=== PATIENT | male | born 1945 | race Caucasian/White ===

== ENCOUNTER → 2021-04-21 09:40 | Outpatient (CLI) | payer MEDICARE, BC, SELFPAY ==
[2021-04-21 11:35] LABS: Basophils # 0.1 K/mm3 (0-0.2); Basophils % 1.2 % (0.1-2.0); Eosinophils # 0.3 K/mm3 (0.0-0.4); Eosinophils % 5.2 % (0.1-12.0); Hematocrit 52.6 % (42.0-52.0); Hemoglobin 17.5 g/dL (14.1-18.0); Lymphocytes # 1.5 K/mm3 (0.7-4.5); Lymphocytes % 25.7 % (10-50); Mean Corpuscular HGB Conc 33.2 g/dL (31.8-35.4); Mean Corpuscular Hemoglobin 36.1 pg (27.0-31.2); Mean Corpuscular Volume 108.6 fl (80-94); Mean Platelet Volume 7.6 fl (7.4-10.4); Monocytes # 0.4 K/mm3 (0.1-1.0); Monocytes % 6.9 % (1.7-9.3); Neutrophils # 3.6 K/mm3 (1.8-7.8); Platelet Count 239 K/mm3 (142-424); Red Blood Count 4.84 M/mm3 (4.60-6.20); Red Cell Distribution Width 12.9 % (11.5-17.5); White Blood Count 5.9 K/mm3 (4.8-10.8)
== END ==
PROVIDERS: PCP Nurse Practitioner; Visit Provider Nurse Practitioner
DX: Z20.822 Contact with and (suspected) exposure to COVID-19 (principal)
CPT/HCPCS: 36415; 85025; C9803; U0003; U0005

== ENCOUNTER → 2022-03-16 09:35 | Outpatient (CLI) | payer MEDICARE, BC, SELFPAY | PROVIDERS: PCP Nurse Practitioner; Visit Provider Nurse Practitioner | DX: J01.00 Acute maxillary sinusitis, unspecified (principal) ==

== ENCOUNTER → 2022-03-16 11:43 | Outpatient (CLI) | payer MEDICARE, BC, SELFPAY ==
--- NOTE | 2022-03-16 11:53 | XR_ITS ---
FINAL REPORT CLINICAL HISTORY: pneumonia, bronchitis, cough FINDINGS: Two views of the chest were obtained. The heart size and pulmonary vascularity are within normal limits. The mediastinum is normal. No acute pulmonary abnormality is identified. There is no pneumothorax. The bony thorax is intact. IMPRESSION: No active cardiopulmonary disease. Reviewed, Interpreted and Dictated by Stan Badillo III, MD Transcribed by Andrea Francis Authenticated and [facility]
[2022-03-16 17:51] LABS: Adenovirus,PCR Not Detected (NotDetected); Bordetella Pertussis Not Detected (NotDetected); Chlamydophila Pneumoniae, PCR Not Detected (NotDetected); Coronavirus 19, PCR Not Detected (NotDetected); Coronavirus 229E Not Detected (NotDetected); Coronavirus NL63 Not Detected (NotDetected); Coronavirus OC43 Not Detected (NotDetected); Coronovirus HKU1,PCR Not Detected (NotDetected); Human Metapneumovirus Not Detected (NotDetected); Influenza A, PCR Not Detected (NotDetected); Influenza AH1, 2009 Not Detected (NotDetected); Influenza AH1, PCR Not Detected (NotDetected); Influenza AH3,PCR Not Detected (NotDetected); Influenza B, PCR Not Detected (NotDetected); Mycoplasma Pneumoniae, PCR Not Detected (NotDetected); Parainfluenza 1, PCR Not Detected (NotDetected); Parainfluenza 2, PCR Not Detected (NotDetected); Parainfluenza 3, PCR Not Detected (NotDetected); Parainfluenza 4, PCR Not Detected (NotDetected); Respiratory Syncytial Virus Not Detected (NotDetected); Rhinovirus/Enterovirus Not Detected (NotDetected)
[2022-03-16 18:00] LABS: Basophils # 0.1 K/mm3 (0-0.2); Basophils % 1.8 % (0.1-2.0); Eosinophils # 0.5 K/mm3 (0.0-0.4); Eosinophils % 9.4 % (0.1-12.0); Hemoglobin 16.5 g/dL (14.1-18.0); Lymphocytes # 1.2 K/mm3 (0.7-4.5); Lymphocytes % 23.3 % (10-50); Mean Corpuscular HGB Conc 32.5 g/dL (31.8-35.4); Mean Corpuscular Hemoglobin 35.4 pg (27.0-31.2); Mean Platelet Volume 9.1 fl (7.4-10.4); Monocytes # 0.5 K/mm3 (0.1-1.0); Monocytes % 8.9 % (1.7-9.3); Neutrophils # 2.9 K/mm3 (1.8-7.8); Neutrophils % 56.5 % (37.0-80.0); Platelet Count 306 K/mm3 (142-424); Red Blood Count 4.68 M/mm3 (4.60-6.20); Red Cell Distribution Width 13.5 % (11.5-17.5); White Blood Count 5.1 K/mm3 (4.8-10.8)
== END ==
PROVIDERS: PCP Family Medicine; Visit Provider Nurse Practitioner
DX: J01.00 Acute maxillary sinusitis, unspecified (principal); J40 Bronchitis, not specified as acute or chronic; R05.9 Cough, unspecified; Z20.822 Contact with and (suspected) exposure to COVID-19
CPT/HCPCS: 71046; 85025; 87581; 87632; 87798; C9803; U0003; U0005

== ENCOUNTER 2024-02-07 11:18 | Emergency (ER) | payer MEDICARE, BC, SELFPAY ==
[2024-02-07 11:20] VITALS: BP 132/87; PULSE 71; RESP 18; TEMP 36.5; O2SAT 98; BMI 21.2
--- NOTE | 2024-02-07 11:28 | ECG_ITS ---
APPROVED REPORT Exam: Resting ECG HR:81 bpm ECG Measurements Heart Rate 81 AXES NC 164 P 76 QRSd 77 QRS 85 QT 345 T 79 QTc 383 Conclusion Sinus rhythm Intermittent PVCs Electronically signed by : MARIA D PARKER, 02/08/2024 07:03:37
--- NOTE | 2024-02-07 11:42 | PC.NURSE ---
Dr. Manzano at [facility] for pt eval
[2024-02-07 12:01] VITALS: BP 105/79; PULSE 78; RESP 14; O2SAT 97
[2024-02-07 12:02] LABS: Basophils # 0.1 K/mm3 (0-0.2); Basophils % 1.5 % (0.1-2.0); Eosinophils # 0.2 K/mm3 (0.0-0.4); Hematocrit 48.1 % (42.0-52.0); Hemoglobin 16.1 g/dL (14.1-18.0); Lymphocytes # 1.3 K/mm3 (0.7-4.5); Lymphocytes % 23.2 % (10-50); Mean Corpuscular HGB Conc 33.6 g/dL (31.8-35.4); Mean Corpuscular Hemoglobin 36.1 pg (27.0-31.2); Mean Corpuscular Volume 107.5 fl (80-94); Mean Platelet Volume 7.8 fl (7.4-10.4); Monocytes # 0.5 K/mm3 (0.1-1.0); Monocytes % 8.8 % (1.7-9.3); Neutrophils # 3.6 K/mm3 (1.8-7.8); Neutrophils % 63.4 % (37.0-80.0); Platelet Count 319 K/mm3 (142-424); Red Blood Count 4.47 M/mm3 (4.60-6.20); Red Cell Distribution Width 13.6 % (11.5-17.5); White Blood Count 5.7 K/mm3 (4.8-10.8)
[2024-02-07 12:04] LABS: Albumin Level 4.3 g/dl (3.5-5.0); Chloride 104 mmol/L (98-107)
[2024-02-07 12:05] LABS: Potassium 4.4 mmoL/L (3.5-5.1); Sodium 139 mmol/L (136-145)
[2024-02-07 12:08] LABS: Alanine Aminotransferase 20 U/L (12-78); Albumin/Globulin Ratio 1.3 (1.1-1.8); Alkaline Phosphatase 80 U/L (38-126); Anion Gap 8.4 mEq/L (5-15); Aspartate Amino Transferase 40 U/L (17-59); Bilirubin,Total 0.8 mg/dl (0.2-1.3); Calcium 9.3 mg/dl (8.4-10.2); Carbon Dioxide 31 mmol/L (22.0-30.0); Globulin 3.4 g/dL (1.3-3.2); Glucose 84 mg/dl (74-100); Total Protein,Serum 7.7 g/dl (6.3-8.2)
[2024-02-07 12:12] LABS: Blood Urea Nitrogen 16 mg/dl (9-20)
[2024-02-07 12:13] LABS: C-Reactive Protein 1.7 mg/L (0-4); Creatinine Clearance Estimated 46 mL/min (50-200); Estimated Glomerular Filt Rate 59 ml/min (>60); GFR (African American) 71 ML/MIN (>60)
[2024-02-07 12:22] LABS: Troponin I < 0.01 ng/ml (0.00-0.034)
--- NOTE | 2024-02-07 12:28 | CT_ITS ---
FINAL REPORT CLINICAL HISTORY: Left-sided blurry vision, goes to chiropractor FINDINGS: Axial images of the head were obtained without contrast. Coronal reformatted images were also obtained. This study was performed with techniques to keep radiation doses as low as reasonably achievable (ALARA). Individualized dose reduction techniques using automated exposure control or adjustment of mA and/or kV according to the patient's size were employed. There is generalized age-appropriate atrophy. Periventricular low-attenuation areas are seen consistent with mild chronic ischemic changes. There is no evidence of intracranial hemorrhage or mass. There is no evidence of acute infarct. There is no evidence of shift of the midline structures. No skull abnormality is seen on the bone window images. IMPRESSION: Atrophy and mild periventricular chronic ischemic changes. No acute intracranial abnormality identified. Reviewed, Interpreted and Dictated by Stan Badillo III, MD Transcribed by Paulina Ibarra Authenticated and [facility]
--- NOTE | 2024-02-07 12:28 | CT_ITS ---
FINAL REPORT TECHNIQUE: Thin section axial CT with IV contrast supplemented with multiplanar reconstruction under CT angiogram protocol. This study was performed with techniques to keep radiation doses as low as reasonably achievable (ALARA). Individualized dose reduction techniques using automated exposure control or adjustment of mA and/or kV according to the patient''s size were employed. NASCET criteria was utilized during interpretation. CLINICAL HISTORY: Left-sided vision changes, floaters, colors FINDINGS: Aortic arch: Arch shows no significant narrowing. Great vessel origins are widely patent. Right carotid: No significant stenosis is seen of the cervical common or internal carotid artery. Left carotid: No significant stenosis is seen of the cervical common or internal carotid artery. Vertebral: The vertebral arteries are codominant. There is mild deformity of the left vertebral artery at the C4-5 level. This is favored to be due to mass effect from left facet arthropathy. No significant stenosis is present. IMPRESSION: No evidence of stenosis. Reviewed, Interpreted and Dictated by Stan Badillo III, MD Transcribed by Paulina Ibarra Authenticated and [facility]
--- NOTE | 2024-02-07 12:28 | CT_ITS ---
FINAL REPORT TECHNIQUE: Thin section axial CT with IV contrast supplemented with multiplanar reconstruction under CT angiogram protocol. 3-D reconstructions were performed. This study was performed with techniques to keep radiation doses as low as reasonably achievable (ALARA). Individualized dose reduction techniques using automated exposure control or adjustment of mA and/or kV according to the patient''s size were employed. CLINICAL HISTORY: Left-sided vision changes, floaters, colors FINDINGS: There is vascular prominence at the right middle cerebral artery trifurcation without well-defined aneurysm. Major intracranial vessels are patent without significant stenosis. IMPRESSION: No evidence of aneurysm or major branch occlusion. Reviewed, Interpreted and Dictated by Stan Badillo III, MD Transcribed by Paulina Ibarra Authenticated and . [facility]
--- NOTE | 2024-02-07 12:28 | HMH.EDGENADL ---
Discharge Plan Disposition Patient Disposition: Home, Self-Care Prescriptions Prescriptions: No Action fluticasone propionate [Flonase Allergy Relief] 50 mcg/actuation spray,suspension 1 spray intranasal BID Rx Instructions: administer into each nostril Referrals Follow up/Referrals: Celeste Zuñiga APRN [Primary Care Provider] - See instructions Activity Restrictions/Add. Instructions Additional Instructions/Restrictions: Follow-up with Dr. Chowdhury tomorrow in the [facility] ophthalmology clinic at 1 PM. Call your family doctor to establish care for this visit to the emergency department and schedule follow-up within 48 hours to ensure improvement. If you have any worsening of your condition or any other concerning signs or symptoms, return to the emergency department or your primary care doctor for further evaluation. Clinical Impressions Clinical Impression: Vision loss of left eye Print Language Print Language: [place] Discharge ED Provider: Jb Manzano General Adult HPI <Jb Manzano MD - Last Filed: 02/07/24 16:25> General Chief complaint: Eye Problems Stated complaint: kliedascope vision L eye, pain in C1 nerve, headac Time Seen by Provider: 02/07/24 11:34 Mode of Arrival: Ambulatory Source of Information: Patient Limitations: No Limitations Description of Symptoms (Recalled from ER Triage Doc. by RN): c/o neck pain with c1 vertebrae problems that he has been seeing a chriopractor for and started having blurry vision and no color. 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 History of Present Illness HPI narrative: Please note that above description of symptoms, in this electronic medical record under categorization of recalled from ER triage doctor by RN are reflective of an initial nursing assessment, however, is not reflective of my full history and physical exam that was personally taken and clarified. Consequentially, this preceding description of symptoms, which may include the patient's categorized chief complaint in the EMR, do not reflect my personal clinical impression, and the ultimate description of history of present illness and patient stated complaints should be deferred to this section of the note. Unless stated otherwise or congruent with this section of the note, additional signs, symptoms, or incongruence should be interpreted as inaccurate with my clinical impression. Related Data Home Medications ?Medication ?Instructions ?Recorded ?Confirmed fluticasone propionate 50 1 spray intranasal BID 03/16/22 02/07/24 mcg/actuation nasal spray,suspension (Flonase Allergy Relief) Allergies Allergy/AdvReac Type Severity Reaction Status Date / Time No Known Allergies Allergy Verified 02/07/24 09:14 [facility] <Jb Manzano MD - Last Filed: 02/07/24 16:25> [facility] Disclaimer: The information contained in this section may have been updated after the patient was seen, as this information can be updated by other users. Medical History Activity intolerance Headache Blurred vision, left eye Transient neurological symptoms Personal history of smoking Surgical History History of hernia repair Social History Smoking Status: Current every day smoker alcohol intake: current current occupational status: retired Travel in the last 8 weeks: None <Jb Manzano MD - Last Filed: 02/07/24 16:25> ROS Obtained: Yes All systems reviewed & no additional complaints except as documented Physical Exam <Jb Manzano MD - Last Filed: 02/07/24 16:25> General General appearance: alert Head Head exam: atraumatic and normocephalic Eye Eye exam: Present normal appearance, PERRL and EOMI Neck Neck exam: Present normal inspection, full ROM and trachea midline Respiratory Respiratory exam: Absent respiratory distress, wheezes, stridor, accessory muscle use or prolonged expiratory phase Cardiovascular Cardiovascular exam: Present other (Pulses equal symmetric in upper and lower extremities) Abdominal Exam Abdominal exam: Present soft; Absent distention, tenderness or pulsatile mass Extremities Exam Extremities exam: Absent edema Neurological Exam Neurological exam: Present alert, oriented X3 and CN II-XII intact; Absent motor sensory deficit Skin Skin exam: Present warm and dry; Absent diaphoresis or erythema Medical Decision Making <Jb Manzano MD - Last Filed: 02/07/24 16:25> Medical Records Medical records reviewed: Yes I reviewed the patient's medical records. Pio Inquiry Pt receiving controlled substance: No Pio was queried for this patient: No Vital Signs: 02/07/24 11:20 02/07/24 12:01 02/07/24 15:30 Temperature 97.7 F Temperature Source Oral Pulse Rate 78 78 Pulse Rate [Left Radial] 71 Respiratory Rate 18 14 18 Blood Pressure 105/79 L 135/87 Blood Pressure [Right Arm] 132/87 Blood Pressure Mean [Right Arm] 102 Blood Pressure Source [Right Arm] Automatic Cuff Blood Pressure Position [Right Arm] Sitting 02 Sat by Pulse Oximetry 98 97 97 Oxygen Delivery Method Room Air Room Air 02/07/24 16:00 02/07/24 17:04 Temperature 97.7 F Temperature Source Oral Pulse Rate 72 72 Pulse Rate [Left Radial] Respiratory Rate 23 16 Blood Pressure 114/84 98/55 L Blood Pressure [Right Arm] Blood Pressure Mean [Right Arm] Blood Pressure Source [Right Arm] Blood Pressure Position [Right Arm] 02 Sat by Pulse Oximetry 99 Oxygen Delivery Method Room Air Lab Data Lab Results 02/07/24 11:28: WBC 5.7, RBC 4.47 L, Hgb 16.1, Hct 48.1, MCV 107.5 H, MCH 36.1 H, MCHC 33.6, RDW 13.6, Plt Count 319, MPV 7.8, Neut % (Auto) 63.4, Lymph % (Auto) 23.2, [place] % (Auto) 8.8, Eos % (Auto) 3.0, Baso % (Auto) 1.5, Neut # (Auto) 3.6, Lymph # (Auto) 1.3, [place] # (Auto) 0.5, Eos # (Auto) 0.2, Baso # (Auto) 0.1, ESR 18, Sodium 139, Potassium 4.4, Chloride 104, Carbon Dioxide 31 H, Anion Gap 8.4, BUN 16, Creatinine 1.20, Estimated Creat Clear 46, Estimated GFR 59, Est GFR ( Amer) 71, Glucose 84, Calcium 9.3, Total Bilirubin 0.8, AST 40, ALT 20, Alkaline Phosphatase 80, Troponin I < 0.01, C-Reactive Protein 1.7, Total Protein 7.7, Albumin 4.3, Globulin 3.4 H, Albumin/Globulin Ratio 1.3 02/07/24 12:30: Urine Color Yellow, Urine Appearance Clear, Urine pH 7.0, Ur Specific [place] 1.015, Urine Protein Negative, Urine Glucose (UA) Negative, Urine Ketones Negative, Urine Blood Negative, Urine Nitrate Negative, Urine Bilirubin Negative, Urine Urobilinogen 0.2, Ur Leukocyte Esterase Negative, Urine RBC None, Urine WBC None, Ur Squamous Epith Cells None, Urine Bacteria None 02/07/24 14:55: Troponin I < 0.01 02/07/24 11:28 02/07/24 11:28 Orders (Tests/Meds): ED MEDICATIONS Discontinued Medications Generic Name Dose Route Start Last Admin Trade Name Freq PRN Reason Stop Dose Admin Iopamidol 80 ml 02/07/24 12:55 02/07/24 12:56 Iopamidol-370 (76%);100ml Bottle IV 02/07/24 12:56 80 ml ONCE ONE Administration Sodium Chloride 50 ml 02/07/24 12:55 02/07/24 12:56 0.9 % Sodium Chloride 50 Ml Vial IV 02/07/24 12:56 50 ml ONCE ONE Administration Sodium Chloride 10 ml 02/07/24 12:55 02/07/24 12:55 Sodium Chloride 0.9% 10ml Syr (Rad Only) IV 03/08/24 12:54 10 ml NEEDED PRN Administration Maintain IV Site ORDERS Category Date Time Status CT angio head Stat Cat Scan 02/07/24 12:[address] angio neck Stat Cat Scan 02/07/24 12:[address] head/brain wo con Stat Cat Scan 02/07/24 12:28 Completed POCUS Point of Care (ER Only) Stat Exams 02/07/24 11:54 Completed CBC w/Auto Diff [Complete Blood Count Auto Diff] Stat Lab 02/07/24 11:28 Completed CMP [Comprehensive Metabolic Panel] Stat Lab 02/07/24 11:28 Completed CRP [C-Reactive Protein] Stat Lab 02/07/24 11:28 Completed ESR [Erythrocyte Sedimentation Rate] Stat Lab 02/07/24 11:28 Completed Trop I [Troponin I] Stat Lab 02/07/24 11:28 Completed Troponin I Q3H Lab 02/07/24 14:55 Completed UA [Urinalysis and Microscopic] Stat Lab 02/07/24 12:30 Completed CA carotid duplex BI Routine Y 02/07/24 13:47 Completed CA echo doppler complete Routine Y 02/07/24 13:47 Completed Medical Decision Narrative: 78-year-old male history of neck pain following with chiropractor for C1 radiculopathy presenting with left eye vision changes. Patient states that left eye vision changes have been going on for a few days at this point. Noticed on Sunday that he started having flashes of colors as well as blurry vision in his left eye. No vision changes in his right eye. Last time his neck was manipulated was last week 7 days prior to this visit. States that prior to that he was having scalp tenderness on the left side, pain in the left side of his jaw with chewing and eating as well as talking, both of these things got better with rest. Saw pediatric geneticist yesterday, 02/05. Had full funduscopic exam, per report, which was totally normal. No left-sided facial symptoms otherwise, no left-sided extremity weakness. No bowel or bladder dysfunction, no trauma. No fevers, chills, night sweats, unintended weight loss, trauma to the area, neck stiffness or pain. Also denying chest pain, nausea, vomiting, shortness of breath, PND, orthopnea, or any other associated symptoms at all. Isolated to his eye. Has never had this in the past. Patient went to his family doctor who had list of tests, etc. to be done over the next couple of weeks and came to the emergency department to see if they can be performed. History was obtained via conversation with patient. On arrival, patient hemodynamically stable, alert, [oriented x4, ][appropriate, ]GCS [15], moving all extremities spontaneously, pupils equal and reactive to light. Full physical exam performed and significant for very well-appearing male who is in no acute distress. Pupils are 3 mm and reactive bilaterally. Consensual reflex intact. EOMs are intact. Patient does not have nystagmus. Potential cataract in the left eye. Cranial nerve, cerebellar, motor and sensory exam is all normal as well. No scalp tenderness, no palpable temporal artery on the left. No overlying skin changes. Normal intraocular pressures, normal EOMs and nonpainful. Cardiac exam without acute findings, no lower extremity edema. Pulses are equal and symmetric. Differential includes retinal detachment, vitreous hemorrhage, GCA, ischemic arteritis, nonischemic arteritis, optic neuritis, dissection, CVA, among others. Patient placed on continuous cardiac monitoring and continuous pulse ox with initial blood pressure 132/87, heart rate 71, saturation 98% on room air. [Independent interpretation of EKG shows] sinus rhythm with sinus arrhythmia, intermittent PVCs. No ST or T wave changes concerning for acute schema.. Patient was given p.o. fluids for symptomatic management[ and correction of underlying abnormalities]. Workup independently interpreted and significant for nonactionable CBC or chemistry, ESR and CRP negative. Troponin negative. On independent interpretation of imaging, no acute vascular abnormality of the head or neck, no CVA, no intracranial hemorrhage. See radiology read for full review of final results. I contacted ophthalmology out of concern for unknown etiology of painless vision loss at [facility]. They recommended outpatient follow-up tomorrow, 02/07 at 1:30 PM in clinic. [id number] bedside ocular ultrasound performed and no retinal abnormality, but there is optic nerve edema with borderline enlarged optic nerve just over 6 mm. Cardiac and carotid ultrasound pending at time of handoff to oncoming physician. [employer] disclaimer Much of this encounter note is an electronic product steward spoken language to printed text. Electronic product steward of the spoken language may permit errors. Although I have reviewed the note, some errors may still exist. <Milagros Schneider, DO - Last Filed: 02/07/24 23:15> Vital Signs: 02/07/24 11:20 02/07/24 12:01 02/07/24 15:30 Temperature 97.7 F Temperature Source Oral Pulse Rate 78 78 Pulse Rate [Left Radial] 71 Respiratory Rate 18 14 18 Blood Pressure 105/79 L 135/87 Blood Pressure [Right Arm] 132/87 Blood Pressure Mean [Right Arm] 102 Blood Pressure Source [Right Arm] Automatic Cuff Blood Pressure Position [Right Arm] Sitting 02 Sat by Pulse Oximetry 98 97 97 Oxygen Delivery Method Room Air Room Air 02/07/24 16:00 02/07/24 17:04 Temperature 97.7 F Temperature Source Oral Pulse Rate 72 72 Pulse Rate [Left Radial] Respiratory Rate 23 16 Blood Pressure 114/84 98/55 L Blood Pressure [Right Arm] Blood Pressure Mean [Right Arm] Blood Pressure Source [Right Arm] Blood Pressure Position [Right Arm] 02 Sat by Pulse Oximetry 99 Oxygen Delivery Method Room Air Lab Data Lab Results 02/07/24 11:28: WBC 5.7, RBC 4.47 L, Hgb 16.1, Hct 48.1, MCV 107.5 H, MCH 36.1 H, MCHC 33.6, RDW 13.6, Plt Count 319, MPV 7.8, Neut % (Auto) 63.4, Lymph % (Auto) 23.2, [place] % (Auto) 8.8, Eos % (Auto) 3.0, Baso % (Auto) 1.5, Neut # (Auto) 3.6, Lymph # (Auto) 1.3, [place] # (Auto) 0.5, Eos # (Auto) 0.2, Baso # (Auto) 0.1, ESR 18, Sodium 139, Potassium 4.4, Chloride 104, Carbon Dioxide 31 H, Anion Gap 8.4, BUN 16, Creatinine 1.20, Estimated Creat Clear 46, Estimated GFR 59, Est GFR ( Amer) 71, Glucose 84, Calcium 9.3, Total Bilirubin 0.8, AST 40, ALT 20, Alkaline Phosphatase 80, Troponin I < 0.01, C-Reactive Protein 1.7, Total Protein 7.7, Albumin 4.3, Globulin 3.4 H, Albumin/Globulin Ratio 1.3 02/07/24 12:30: Urine Color Yellow, Urine Appearance Clear, Urine pH 7.0, Ur Specific [place] 1.015, Urine Protein Negative, Urine Glucose (UA) Negative, Urine Ketones Negative, Urine Blood Negative, Urine Nitrate Negative, Urine Bilirubin Negative, Urine Urobilinogen 0.2, Ur Leukocyte Esterase Negative, Urine RBC None, Urine WBC None, Ur Squamous Epith Cells None, Urine Bacteria None 02/07/24 14:55: Troponin I < 0.01 Orders (Tests/Meds): ED MEDICATIONS Discontinued Medications Generic Name Dose Route Start Last Admin Trade Name Freq PRN Reason Stop Dose Admin Iopamidol 80 ml 02/07/24 12:55 02/07/24 12:56 Iopamidol-370 (76%);100ml Bottle IV 02/07/24 12:56 80 ml ONCE ONE Administration Sodium Chloride 50 ml 02/07/24 12:55 02/07/24 12:56 0.9 % Sodium Chloride 50 Ml Vial IV 02/07/24 12:56 50 ml ONCE ONE Administration Sodium Chloride 10 ml 02/07/24 12:55 02/07/24 12:55 Sodium Chloride 0.9% 10ml Syr (Rad Only) IV 03/08/24 12:54 10 ml NEEDED PRN Administration Maintain IV Site ORDERS Category Date Time Status CT angio head Stat Cat Scan 02/07/24 12:[address] angio neck Stat Cat Scan 02/07/24 12:[address] head/brain wo con Stat Cat Scan 02/07/24 12:28 Completed POCUS Point of Care (ER Only) Stat Exams 02/07/24 11:54 Completed CBC w/Auto Diff [Complete Blood Count Auto Diff] Stat Lab 02/07/24 11:28 Completed CMP [Comprehensive Metabolic Panel] Stat Lab 02/07/24 11:28 Completed CRP [C-Reactive Protein] Stat Lab 02/07/24 11:28 Completed ESR [Erythrocyte Sedimentation Rate] Stat Lab 02/07/24 11:28 Completed Trop I [Troponin I] Stat Lab 02/07/24 11:28 Completed Troponin I Q3H Lab 02/07/24 14:55 Completed UA [Urinalysis and Microscopic] Stat Lab 02/07/24 12:30 Completed CA carotid duplex BI Routine Y 02/07/24 13:47 Completed CA echo doppler complete Routine Y 02/07/24 13:47 Completed Medical Decision Narrative: 78-year-old male history of neck pain following with chiropractor for C1 radiculopathy presenting with left eye vision changes. Patient states that left eye vision changes have been going on for a few days at this point. Noticed on Sunday that he started having flashes of colors as well as blurry vision in his left eye. No vision changes in his right eye. Last time his neck was manipulated was last week 7 days prior to this visit. States that prior to that he was having scalp tenderness on the left side, pain in the left side of his jaw with chewing and eating as well as talking, both of these things got better with rest. Saw pediatric geneticist yesterday, 02/05. Had full funduscopic exam, per report, which was totally normal. No left-sided facial symptoms otherwise, no left-sided extremity weakness. No bowel or bladder dysfunction, no trauma. No fevers, chills, night sweats, unintended weight loss, trauma to the area, neck stiffness or pain. Also denying chest pain, nausea, vomiting, shortness of breath, PND, orthopnea, or any other associated symptoms at all. Isolated to his eye. Has never had this in the past. Patient went to his family doctor who had list of tests, etc. to be done over the next couple of weeks and came to the emergency department to see if they can be performed. History was obtained via conversation with patient. On arrival, patient hemodynamically stable, alert, [oriented x4, ][appropriate, ]GCS [15], moving all extremities spontaneously, pupils equal and reactive to light. Full physical exam performed and significant for very well-appearing male who is in no acute distress. Pupils are 3 mm and reactive bilaterally. Consensual reflex intact. EOMs are intact. Patient does not have nystagmus. Potential cataract in the left eye. Cranial nerve, cerebellar, motor and sensory exam is all normal as well. No scalp tenderness, no palpable temporal artery on the left. No overlying skin changes. Normal intraocular pressures, normal EOMs and nonpainful. Cardiac exam without acute findings, no lower extremity edema. Pulses are equal and symmetric. Differential includes retinal detachment, vitreous hemorrhage, GCA, ischemic arteritis, nonischemic arteritis, optic neuritis, dissection, CVA, among others. Patient placed on continuous cardiac monitoring and continuous pulse ox with initial blood pressure 132/87, heart rate 71, saturation 98% on room air. [Independent interpretation of EKG shows] sinus rhythm with sinus arrhythmia, intermittent PVCs. No ST or T wave changes concerning for acute schema.. Patient was given p.o. fluids for symptomatic management[ and correction of underlying abnormalities]. Workup independently interpreted and significant for nonactionable CBC or chemistry, ESR and CRP negative. Troponin negative. On independent interpretation of imaging, no acute vascular abnormality of the head or neck, no CVA, no intracranial hemorrhage. See radiology read for full review of final results. I contacted ophthalmology out of concern for unknown etiology of painless vision loss at [facility]. They recommended outpatient follow-up tomorrow, 02/07 at 1:30 PM in clinic. [id number] bedside ocular ultrasound performed and no retinal abnormality, but there is optic nerve edema with borderline enlarged optic nerve just over 6 mm. Cardiac and carotid ultrasound pending at time of handoff to oncoming physician. [employer] disclaimer Much of this encounter note is an electronic product steward spoken language to printed text. Electronic product steward of the spoken language may permit errors. Although I have reviewed the note, some errors may still exist. DO Wyatt: Cardiac ultrasound reassuring. Carotid ultrasound was not read, but I had an interactive discussion with Dr. Mcghee who had ordered it and he advised patient is okay to discharge from his standpoint. I felt this is reasonable since he did not have evidence of stenosis on CTA. He was discharged with instructions for close outpatient follow-up and strict return precautions. Critical Care <Jb Manzano MD - Last Filed: 02/07/24 16:25> Critical Care Time Critical Care Time: No
[2024-02-07 12:35] LABS: Microscopic, Urine URINE MICROSCOPIC (MICROSCOPIC)
[2024-02-07 12:41] LABS: Appearance,Urine CLEAR (Clear); Bilirubin,Urine Negative (Negative); Blood, Urine Negative (Negative); Color,Urine YELLOW (Yellow); Glucose,Urine (UA) Negative (Negative); Ketones,Urine Negative (Negative); Leukocyte Esterase,Urine Negative (Negative); Nitrate,Urine Negative (Negative); Protein,Urine Negative (Negative); Specific Gravity, Urine 1.015 (1.005-1.030); Urobilinogen,Urine 0.2 EU/dl (0.2)
[2024-02-07 12:55] LABS: Erythrocyte Sedimentation Rate 18 mm/hr (0-20)
[2024-02-07] MEDS: SODIUM CHLORIDE 0.9% 10ML SYR (RAD ONLY) 10 ML IV (12:55)
[2024-02-07] MEDS: 0.9 % SODIUM CHLORIDE 50 ML VIAL IV (12:56)
[2024-02-07] MEDS: IOPAMIDOL-370 (76%);100ML BOTTLE 80 ML IV (12:56)
--- NOTE | 2024-02-07 13:47 | CA_ITS ---
FINAL REPORT TECHNIQUE: Color Doppler, duplex Doppler and veliz scale sonography of the bilateral neck arterial vasculature was performed. Velocities were measured in the carotid arteries. Stenosis evaluation based on the validated velocity criteria. CLINICAL HISTORY: VISION DISTURANCE L EYE COMPARISON: None FINDINGS: The peak systolic velocity of the right common carotid artery is 80 cm/s. The peak systolic velocity of the right internal carotid artery is 91 cm/s and end diastolic velocity 25 cm/s. The ICA/CCA ratio is 1.47. A mild amount of plaque is present. The right external carotid artery is patent. The right vertebral artery is patent with antegrade flow. The peak systolic velocity of the left common carotid artery is 71 cm/s. The peak systolic velocity of the left internal carotid artery is 91 cm/s and end diastolic velocity 16 cm/s. The ICA/CCA ratio is 1.28. A mild amount of plaque is present. The left external carotid artery is patent.The left vertebral artery is patent with antegrade flow. IMPRESSION: Less than 50% bilateral carotid stenoses. Bilateral patent vertebral arteries with antegrade flow. If indicated, CTA or MRA could further evaluate. Reviewed, Interpreted and Dictated by Stan Badillo III, MD Transcribed by Cristina Ruth Authenticated and [facility]
--- NOTE | 2024-02-07 13:47 | CA_ITS ---
APPROVED REPORT EXAM: Comprehensive 2D, Doppler, and color-flow Echocardiogram Surface Hydrologist: Christy Olvera RDCS Ht: 5 ft 8 in Wt: 140lbs BSA: 1.76 BP: 132/97 mmHg Indications: VISION DISTURBANCE LEFT EYE ?CVA M-Mode Dimensions RVDd 2.15 cm (0.9-2.6) LA Diam 2.02 cm (1.9-4.0) LVDd 4.61 cm (3.5-5.7) LVDs 3.16 cm (3.5-5.7) IVSd 0.71 cm (0.6-1.1) PWd 0.67 cm (0.6-1.1) EF (Teich) 59.40% FS 31.50% EDV (Teich) 97.80 mL ESV (Teich) 39.70 mL LV Diastology E Decel Time 203 (160-240 msec) E/A Ratio 0.8 Mitral Valve MV E Max Kris. 56.0 (40-130 cm/s) MV A Velocity 73.0 (40-130 cm/s) E/A Ratio 0.76 MV PHT 60.0 ms Left Ventricle The left ventricle is normal size. The left ventricular systolic function is normal. The left ventricular ejection fraction is within the normal range. There is increased LV wall thickness. There is normal LV segmental wall motion. The left ventricular diastolic function is normal. LVEF is 55%. Right Ventricle Right ventricle is mildly dilated. The right ventricular systolic function is normal. Atria The left atrium size is normal. The right atrium size is normal. There is no Doppler evidence of interatrial shunt. Aortic Valve The aortic valve is mildly thickened. There is no aortic valvular stenosis. No aortic regurgitation is present. Mitral Valve The mitral valve is normal in structure. No evidence of mitral valve stenosis. Trace mitral valve regurgitation noted. Tricuspid Valve The tricuspid valve leaflets are mildly thickened. Trace tricuspid regurgitation. There is insufficent TR jet to estimate RVSP. Pulmonic Valve The pulmonary valve is normal in structure. Trace pulmonic regurgitation. Great Vessels The aortic root is normal in size. The ascending aorta is borderline dilated, measuring 3.7 cm in diameter. IVC is normal in size and collapses >50% with inspiration. Pericardium There is no pericardial effusion. Other Information Study Quality: Fair Conclusion Normal biventricular systolic function. No significant valvular stenosis or regurgitation. Electronically signed by : Brittny Ceja MD 02/07/2024 19:34:29
--- NOTE | 2024-02-07 15:20 | PC.NURSE ---
Called for Ophthalmology. Waiting prisoner classification interviewer back.
[2024-02-07 15:24] LABS: Troponin I < 0.01 ng/ml (0.00-0.034)
--- NOTE | 2024-02-07 15:24 | PC.NURSE ---
Dr. Manzano speaking with Dr. Guerrero
[2024-02-07 15:30] VITALS: BP 135/87; PULSE 78; RESP 18; O2SAT 97
--- NOTE | 2024-02-07 15:32 | PC.NURSE ---
[place] [facility] called and could get him at 1:00pm on 02/07. patient is unable to make the appointment, the office will call him and make arrangements for new appointment.
[2024-02-07 16:00] VITALS: BP 114/84; PULSE 72; RESP 23; O2SAT 99
[2024-02-07 17:04] VITALS: BP 98/55; PULSE 72; RESP 16; TEMP 36.5; O2SAT 98
== END 2024-02-07 17:05 | disposition home or self-care (01) ==
PROVIDERS: Emergency Provider Emergency Medicine; PCP Nurse Practitioner
DX: H54.62 Unqualified visual loss, left eye, normal vision right eye (principal); M54.2 Cervicalgia; F17.210 Nicotine dependence, cigarettes, uncomplicated; M54.12 Radiculopathy, cervical region; I49.3 Ventricular premature depolarization; I49.9 Cardiac arrhythmia, unspecified; I65.23 Occlusion and stenosis of bilateral carotid arteries
CPT/HCPCS: 70450; 70496; 70498; 80053; 81001; 84484; 85025; 85651; 86140; 93005; 93306; 93880; 99285; Q9967

== ENCOUNTER 2024-02-14 07:42 | Outpatient (CLI) | payer MEDICARE, BC, SELFPAY ==
--- NOTE | 2024-02-14 | CA_ITS ---
APPROVED REPORT Exam: Pharmacologic Technologist: Shahnaz Yin, Ht: 5 ft 8 in Wt: 147 lbs BSA: 1.79 m2 HR: 55 bpm BP: 127/87 mmHg Rhythm: Sinus bradycardia Medical History Medications: Flonase,,,,, Cardiac Risk Factors: Smoking Stress Test Details Test: LEXISCAN HR Resting HR: 63 bpm Max Heart Rate (APMHR): 143 bpm Max HR Achieved: 88 bpm Target HR (85% APMHR): 122 bpm % of APMHR: 62 Recovery HR: 69 bpm BP Resting BP: 127.0/87.0 mmHg Max BP: 141.0/98.0 mmHg Recovery BP: 137.0/83.0 mmHg ECG Resting ECG: Sinus bradycardia Stress ECG: No ST changes Arrhythmia: PACs, occasional premature junctional beats Clinical Exercise duration: 04:00 min Highest Stage Achieved: Stress ECG Conclusion During lexiscan pt experinced mild SOA and head discomfort. No CP noted. Ectopy: Occasional PAC and premature junctional beat. ST changes: No significant ST changes. Conclusion: Unremarkable lexiscan stress. Myoview images reported separately. Test Summary REST . . . . . . . Sitting REST 04:01 . . 63 . 127/ 87 . . Stage 1 01:00 . . 76 . . . . Stage 2 01:00 . . 82 . 125/ 97 . . Stage 3 01:00 . . 68 . 141/ 98 . . Stage 4 01:00 . . 66 . 138/ 87 . Stop exercise at 04:00 RECOVERY 01:00 . . 67 . . . . RECOVERY 02:00 . . 66 . . . . RECOVERY 03:00 . . 63 . 137/ 83 . . RECOVERY 03:33 . . 68 . 134/ 80 . . Electronically signed by : Brittny Ceja MD 02/15/2024 04:17:57
--- NOTE | 2024-02-14 07:43 | NM_ITS ---
APPROVED REPORT Exam: Nuclear Stress Test Indication: chest pain Patient Location: Outpatient Stress Tech: Shahnaz BUCKNER Tech:Monica Soriano JEREMIAH RT(R)(N) Ht: 5 ft 8 in Wt: 140 lbs HR: 63 bpm BP: 124/87 mmHg BSA: 1.76 m2 Rhythm: NSR TID: 1.18 BMI: 21.2 History: chest pain Procedure: Patient received 0.4 mg of intravenous Lexiscan, resting heart rate 63 bpm, resting blood pressure 127/87 mmHg, with Lexiscan maximum heart rate achieved was 88 bpm which is 85 % of the maximum predicted heart rate and blood pressure was 141/98 mmHg. With Lexiscan, patient denied any complaint of chest pain. Cardiac Stress and Resting SPECT Images: Cardiac Stress and Resting SPECT images were obtained using technetium 99m Myoview 32.9 mCi stress and 10.38 mCi at rest. Resting and stress imaging in supine and prone positions demonstrate a medium-sized, moderate, partially reversible perfusion defect in the basal to mid inferior LV wall. Gated imaging demonstrates mild reduction in global LV systolic function. There is moderate hypokinesis of the basal inferior LV wall. LVEF is calculated at 44%. Conclusion: Medium-sized, moderate, partially reversible perfusion defect in the basal to mid inferior LV wall. Findings are suggestive of partial reversible ischemia. Gated imaging demonstrates mild reduction in global LV systolic function. There is moderate hypokinesis of the basal inferior LV wall. LVEF is calculated at 44%. Electronically signed by : Brittny Ceja MD 02/15/2024 04:20:18
[2024-02-14] MEDS: ISOTOPE MYOVIEW (PER STUDY) 1 DOSE IV (11:09)
[2024-02-14] MEDS: REGADENOSON 0.4MG/5ML SYRINGE 0.4 MG IV (11:09)
[2024-02-14] MEDS: SODIUM CHLORIDE 0.9% 10ML SYR (RAD ONLY) 10 ML IV ×2 (11:09)
== END 2024-02-14 23:59 | disposition home or self-care (01) ==
LOC: RAD 07:43
PROVIDERS: PCP Nurse Practitioner; Visit Provider Nurse Practitioner
DX: R68.89 Other general symptoms and signs (principal); R29.818 Other symptoms and signs involving the nervous system; R06.09 Other forms of dyspnea; R93.1 Abnormal findings on diagnostic imaging of heart and coronary circulation; I49.3 Ventricular premature depolarization
CPT/HCPCS: 78452; 93017; 93018; A9502; J2785

== ENCOUNTER 2024-02-26 10:07 | Outpatient (CLI) | payer MEDICARE, BC, SELFPAY | END 2024-02-26 23:59 | disposition home or self-care (01) | LOC: RT 10:08 | PROVIDERS: PCP Nurse Practitioner; Visit Provider Physician Assistant | DX: I49.3 Ventricular premature depolarization (principal); R06.09 Other forms of dyspnea | CPT/HCPCS: 93270 ==

== ENCOUNTER 2024-03-25 08:54 | Outpatient (CLI) | payer MEDICARE, BC, SELFPAY ==
--- NOTE | 2024-03-25 08:55 | CT_ITS ---
APPROVED REPORT Taker Off Hemp Fiber: CLINICAL INDICATION Chest Pain TECHNIQUE Image Acquisition: A 128 slice MDCT scanner (Proxlya View) was used for data acquisition. A noncontrast coronary calcium scan was performed. A CT attenuation threshold of 130 Hounsfield units (HU) was used for the detection of calcium in contiguous voxels of 1 sq mm in area to be counted as individual lesions. Bolus tracking in the ascending aorta with a threshold of 180 HU was performed. Immediately afterwards, ECG synchronized cardiac CT was then performed from the cardiac base to apex using retrospective gating with ECG tube current modulation. A total of 85 mL of Isovue 370 mg/mL contrast medium was administered at 5 mL/sec followed by a saline flush using a biphasic injection protocol. A tube voltage of 120 KVp was used. The patient received the following medications prior to the cardiac CT. 0.8 mg of sublingual nitroglycerin The average heart rate at the time of acquisition was 54 bpm and regular. Image Reconstruction Transaxial images were reconstructed at 0.67 mm slide thickness. Data was reviewed interactively on an advanced workstation capable of 2 and 3-dimensional displays in all conventional reconstruction formats, including multiplanar reformations, maximum intensity projections, curved multiplanar reformations, and volume rendered reconstructions. When applicable, selected routine images describing the relevant coronary anatomy and pathology were saved and sent to PACS. Complications None Technical Quality Overall image quality was good. Coronary artery opacification was adequate. Total DLP (Dose-Length Product) is 3036.9 mGy-cm. The reported value represents the total of one or more individual components during the CT acquisition of this date and at this time, and as such, the same value may appear in more than one CT report depending on the interpreting/reporting physicians. COMPARISON None FINDINGS CT Coronary Calcium Scoring LMA (Left Main Artery) = 0 LAD (Left Anterior Descending) = 130 LCX (Left Coronary Circumflex) = 58 RCA (Right Coronary Artery) = 0 Total Calcium Score = 188 using the AJ-130 method. The observed calcium score of 188 is at 61st percentile for subjects of the same age, sex, and race/ethnicity. The interpretation of the calcium heart score is based on the following continuum*: 0 = no calcified plaque detected (risk of coronary artery disease is very low ??? less than 5%) 1-10 = calcium detected in extremely minimal levels (risk of coronary diseases is still low ??? less than 10%) 11-100 = mild levels of plaque detected with certainty (mild or minimal narrowing of heart arteries is likely) 101-400 = definite,at least moderate levels of plaque detected (relatively high risk of a heart attack within 3-5 years) >401-999 = extensive levels of plaque detected (high risk of heart attack, high levels of vascular disease are present, high likelihood of at least one significant coronary narrowing) *The calcium heart score quantifies the burden of coronary calcification/plaque in the coronary arteries. The calcium heart score is not able to evaluate the presence or burden of non-calcified (i.e. soft) plaque. There is also calcification in the aortic valve, mitral annulus, and ascending and descending thoracic aorta. Coronary CT Angiography The coronary arterial system is right dominant. The coronary arteries have a tortuous course. Quantitative Stenosis Grading: Left Main (LM): The left main originates normally from the left sinus of Valsalva. The LM bifurcates into the left anterior descending artery and left circumflex artery. The LM is patent with no evidence of atherosclerosis. Left Anterior Descending (LAD) and Diagonal Branches: The LAD gives off 4 diagonal branch(es). There is mixed calcified/noncalcified plaque in the proximal LAD segment, with up to 50-70% luminal stenosis. There is no evidence of LAD-myocardial bridge. Left Circumflex (LCX) and Obtuse Marginals (OM): The LCX gives off 2 Obtuse Marginal (OM) branch(es). There is mixed calcified/noncalcified plaque in the proximal LCx with < 25% luminal stenosis. Right Coronary Artery (RCA): The RCA originates normally from the right sinus of Valsalva. The RCA gives off a posterior descending artery (PDA) and posterolateral (PL) branches. The RCA and its branches are patent with no evidence of atherosclerosis. Non-Coronary Cardiac Findings: Analysis of the left ventricular (LV) structure and function was performed after 3-D reconstruction of the LV from axial images, with user-corrected automatic contouring for assessment of LV volumes and user-defined reconstruction from oblique planes for measurement of 3-D cardiac structure and function. -The left ventricle systolic function is normal. -There is no left atrial appendage filling defect. Two right pulmonary veins and two left pulmonary veins drain normally into the left atrium. -No pericardial thickening or calcification. -Central and branch pulmonary arteries in the [id number] are unremarkable. -Thoracic aorta within the visualized thoracic aortic-branches in the [id number] is unremarkable. Extracardiac Structures No significant extra-cardiac findings. Note, however, that this study is focused on the cardiac findings. IMPRESSION -Presence of coronary calcification with an Agatston score = 188 using the AJ-130 method. -The observed calcium score of 188 is at 61st percentile for subjects of the same age, sex, and race/ethnicity. -The coronary arteries have a tortuous course. Moderate, mixed calcified/noncalcified plaque in the proximal LAD segment with possible evidence of significant flow-limiting atherosclerosis (50-70% luminal stenosis). -CAD-RADS 3. Management recommendations per ACC/AHA guidelines*, as clinically appropriate. -Calcification in the aortic valve, mitral annulus, and ascending and descending thoracic aorta. *Recommendations: CAD RADS 0: Reassurance. Consider non-atherosclerotic causes of chest pain. CAD RADS 1: Consider non-atherosclerotic causes of chest pain. Consider preventive therapy and risk factor modification. CAD RADS 2: Consider non-atherosclerotic causes of chest pain. Consider preventive therapy and risk factor modification, particularly for patients with nonobstructive plaque in multiple segments. CAD RADS 3: Consider further functional testing. Consider symptom-guided anti-ischemic and preventive pharmacotherapy as well as risk factor modification per published guideline statements. CAD RADS 4A: Consider further functional testing or invasive coronary angiography with revascularization per published guideline statements. Consider symptom-guided anti-ischemic and preventive pharmacotherapy as well as risk factor modification per published guideline statements. CAD RADS 4B: Invasive coronary angiography recommended with revascularization per published guideline statements. Consider symptom-guided anti-ischemic and preventive pharmacotherapy as well as risk factor modification per published guideline statements. CAD RADS 5: Consider invasive angiography and/or viability assessment with revascularization per published guideline statements. Consider symptom-guided anti-ischemic and preventive pharmacotherapy as well as risk factor modification per published guideline statements. CRITICAL RESULT None COMMUNICATION Per this written report The coronary and cardiac findings of this CCTA were reviewed, reported, and signed by Benjamin Ceja MD ([employer]) Conclusion Electronically signed by : Brittny Ceja MD 03/26/2024 12:49:14
[2024-03-25 09:05] VITALS: BMI 21.2
[2024-03-25 09:09] VITALS: BP 132/71; PULSE 51; RESP 16; O2SAT 98
[2024-03-25 09:22] LABS: Chloride 106 mmol/L (98-107)
[2024-03-25 09:23] LABS: Potassium 4.3 mmoL/L (3.5-5.1); Sodium 137 mmol/L (136-145)
[2024-03-25 09:26] LABS: Anion Gap 6.3 mEq/L (5-15); Blood Urea Nitrogen 18 mg/dl (9-20); Calcium 9.4 mg/dl (8.4-10.2); Carbon Dioxide 29 mmol/L (22.0-30.0); Creatinine Clearance Estimated 43 mL/min (50-200); Estimated Glomerular Filt Rate 54 ml/min (>60); GFR (African American) 65 ML/MIN (>60); Glucose 91 mg/dl (74-100)
[2024-03-25 09:34] VITALS: BP 152/93; PULSE 52; RESP 16; O2SAT 99
[2024-03-25] MEDS: NITROGLYCERIN 0.4MG SL TABLET SL (09:39)
[2024-03-25 09:45] VITALS: BP 124/83; PULSE 55; RESP 18; O2SAT 99
[2024-03-25] MEDS: IOPAMIDOL-370 (76%);100ML BOTTLE 85 ML IV (09:45)
[2024-03-25] MEDS: 0.9 % SODIUM CHLORIDE 50 ML VIAL IV (09:45)
[2024-03-25] MEDS: SODIUM CHLORIDE 0.9% 10ML SYR (RAD ONLY) 10 ML IV (09:45)
[2024-03-25 09:48] VITALS: BP 108/64; PULSE 56; RESP 16; O2SAT 99
[2024-03-25 09:50] VITALS: BP 142/76; PULSE 55; O2SAT 99
[2024-03-25 09:52] VITALS: BP 131/82; PULSE 51; RESP 16; O2SAT 99
== END 2024-03-25 09:58 | disposition home or self-care (01) ==
PROVIDERS: PCP Nurse Practitioner; Visit Provider Physician Assistant
DX: R06.09 Other forms of dyspnea (principal); I49.3 Ventricular premature depolarization; R94.30 Abnormal result of cardiovascular function study, unspecified
CPT/HCPCS: 75574; 80048; Q9967

== ENCOUNTER 2024-04-23 13:29 | Outpatient (CLI) | payer MEDICARE, BC, SELFPAY ==
--- NOTE | 2024-04-23 13:32 | XR_ITS ---
PROCEDURE INFORMATION: Exam: XR Right Shoulder Exam date and time: 04/23/2024 1:51 PM Age: 78 years old Clinical indication: Pain; Shoulder; Right; Additional info: Right shoulder pain TECHNIQUE: Imaging protocol: Radiologic exam of the right shoulder. Views: 2 or more views. COMPARISON: CT ANGIO NECK 02/07/2024 12:50 PM FINDINGS: Bones/joints: There is no evidence of acute fracture.There is no evidence of malalignment or dislocation. Soft tissues: Normal. IMPRESSION: There is no evidence of acute fracture.There is no evidence of malalignment or dislocation.
== END 2024-04-23 23:59 | disposition home or self-care (01) ==
LOC: RAD 13:30
PROVIDERS: PCP Nurse Practitioner; Visit Provider Physician Assistant Surgical
DX: M25.511 Pain in right shoulder (principal)
CPT/HCPCS: 73030

== ENCOUNTER 2024-07-16 08:23 | Day surgery (SDC) | payer MEDICARE, BC, SELFPAY ==
[2024-07-16] VITALS (12 sets, daily range): BP systolic 106–143; BP diastolic 60–100; PULSE 53–97; RESP 16–20; TEMP 36.8; O2SAT 97–100; BMI 23.4
--- NOTE | 2024-07-16 07:25 | IR_ITS ---
APPROVED REPORT Patient Location: Outpatient PROCEDURES Right radial artery access Catheter placement in the right subclavian artery Right subclavian artery retrograde angiogram Right femoral arterial access Left heart catheterization Left ventriculogram Selective coronary angiogram Catheter placement in the brachiocephalic artery Antegrade brachiocephalic artery selective angiogram Catheter placement in the right common iliac artery Right common iliac artery retrograde angiogram INDICATION Abnormal CCTA, Occluded right subclavian artery, Subclavian steal, Peripheral artery disease, Suspected iliac artery stenosis, History of amaurosis fugax Informed consent was obtained prior to the procedure. COMPLICATIONS NONE Estimated Blood Loss: LESS THAN 10 ML TECHNIQUE One percent lidocaine used to anesthetize the right anterior aspect of the wrist. The right radial artery was accessed via the Seldinger technique. A 6 Polish sheath was placed in the right radial artery. 2.5 mg of Verapamil, 800 mcg of nitroglycerin, 1mg Lidocaine and 5000 U Heparin were given through the arterial sheath. A 6 Polish JL 3 guide catheter was advanced over the wire would not traverse the right subclavian artery. Because of this retrograde angiography was performed which demonstrated the right subclavian artery was occluded. At this point 1% lidocaine was used anesthetize right groin the right femoral artery was accessed via the center technique. A 4 Polish sheath is placed in the right femoral artery and a JL 4 JR4 catheter used to perform left heart catheterization left ventriculogram and selective coronary angiography. The catheter was placed into the brachiocephalic artery where antegrade angiography was performed demonstrating the occlusion of the right subclavian artery. This point the catheter was pulled back to the right common iliac artery where retrograde angiography was performed which demonstrated wide patency of the common and external iliac arteries. The patient was transferred to the postop putting in stable condition for sheath removal ANGIOGRAPHIC RESULTS The left main artery Normal The left anterior descending artery Has proximal eccentric 20% stenosis with mild 10% mid vessel luminal irregularities The circumflex artery Is nondominant gives rise to moderate-sized high first obtuse marginal artery which has 10% luminal regularities. The smaller second obtuse marginal artery has a proximal 40% concentric stenosis The right coronary artery Large dominant with 10% proximal luminal regularities The SCHULTE ventriculogram reveals Normal 65% The left ventricular end-diastolic pressure 10 mmHg Brachiocephalic artery is widely patent and gives rise to a large right common carotid artery Right subclavian artery is fleshly occluded at the origin of the brachiocephalic artery The right axillary artery is widely patent as is the distal portion of the right subclavian artery. The proximal portion is calcified and occluded. 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 Discontinue beta-loli and all blood pressure medications 2. Start aspirin 81 mg daily and continue 3. Start high intensity statin 4. Patient will undergo CTA of the chest and neck and will be referred to Dr. Jluis Yao vascular surgeon at [facility] for consideration of right subclavian bypass surgery Electronically signed by : Willard Mcghee MD 07/16/2024 13:17:37
--- NOTE | 2024-07-16 08:47 | SUR.PREOP ---
STATES HE TAKES NO HOME MEDICATIONS, STATES HE D/C THE BISOPROLOL BECAUSE OF DIZZINESS AND DOES NOT TAKE THE ASA.
[2024-07-16 08:52] LABS: Basophils # 0.1 K/mm3 (0-0.2); Basophils % 1.2 % (0.1-2.0); Eosinophils # 0.2 K/mm3 (0.0-0.4); Eosinophils % 4.5 % (0.1-12.0); Hematocrit 50.5 % (42.0-52.0); Hemoglobin 17.5 g/dL (14.1-18.0); Lymphocytes # 1.7 K/mm3 (0.7-4.5); Lymphocytes % 34.2 % (10-50); Mean Corpuscular HGB Conc 34.7 g/dL (31.8-35.4); Mean Corpuscular Hemoglobin 35.9 pg (27.0-31.2); Mean Corpuscular Volume 103.5 fl (80-94); Mean Platelet Volume 9.4 fl (7.4-10.4); Monocytes # 0.6 K/mm3 (0.1-1.0); Monocytes % 12.3 % (1.7-9.3); Neutrophils # 2.3 K/mm3 (1.8-7.8); Neutrophils % 47.6 % (37.0-80.0); Platelet Count 249 K/mm3 (142-424); Red Blood Count 4.88 M/mm3 (4.60-6.20); Red Cell Distribution Width 12.3 % (11.5-17.5); White Blood Count 4.9 K/mm3 (4.8-10.8)
[2024-07-16 09:07] LABS: Anion Gap 13.7 mEq/L (5-15); Blood Urea Nitrogen 19 mg/dl (9-20); Calcium 9.9 mg/dl (8.4-10.2); Carbon Dioxide 28 mmol/L (22.0-30.0); Chloride 103 mmol/L (98-107); Creatinine Clearance Estimated 56 mL/min (50-200); Estimated Glomerular Filt Rate 65 ml/min (>60); GFR (African American) 79 ML/MIN (>60); Glucose 94 mg/dl (74-100); Potassium 3.7 mmoL/L (3.5-5.1); Sodium 141 mmol/L (136-145)
[2024-07-16] MEDS: VERAPAMIL 2.5MG/ML 2ML VIAL 2.5 MG IV (10:29)
[2024-07-16] MEDS: HEPARIN 1,000 UNITS/500ML NS (CATH LAB) 3000 UNIT IV (10:29)
[2024-07-16] MEDS: LIDOCAINE 1% 10ML MDV 20 ML IJ (10:29)
[2024-07-16] MEDS: 0.9 % SODIUM CHLORIDE 500 ML 25 ML IV (10:30)
[2024-07-16] MEDS: diphenhydrAMINE 50MG/ML VIAL 50 MG IV (10:30)
[2024-07-16] MEDS: HEPARIN 1,000 UNITS/ML 10ML VIAL (CATH LAB) 10000 UNIT IV (10:39)
[2024-07-16] MEDS: MIDAZOLAM HCL 1MG/ML 5ML VIAL 1 MG IV (11:09)
[2024-07-16] MEDS: PHENYLEPHRINE 10 MG/ML IV (11:09)
[2024-07-16] MEDS: FENTANYL 100MCG/2ML VIAL 50 MCG IV (11:09)
[2024-07-16] MEDS: IOPAMIDOL-370 (76%);100ML BOTTLE 110 ML IV (12:34)
[2024-07-16 14:31] LABS: CATHL Activated Clotting Time 188 SEC (74-125)
[2024-07-16 14:32] LABS: CATHL Activated Clotting Time 248 SEC (74-125)
== END 2024-07-16 15:03 | disposition home or self-care (01) ==
LOC: CATHLAB 08:25
PROVIDERS: PCP Nurse Practitioner; Visit Provider Internal Medicine
DX: I25.10 Atherosclerotic heart disease of native coronary artery without angina pectoris (principal); G45.8 Other transient cerebral ischemic attacks and related syndromes; I77.1 Stricture of artery; I73.89 Other specified peripheral vascular diseases; R53.83 Other fatigue; R94.30 Abnormal result of cardiovascular function study, unspecified; R93.1 Abnormal findings on diagnostic imaging of heart and coronary circulation; R06.09 Other forms of dyspnea; F17.210 Nicotine dependence, cigarettes, uncomplicated; I25.82 Chronic total occlusion of coronary artery; I70.8 Atherosclerosis of other arteries; I49.3 Ventricular premature depolarization; G45.3 Amaurosis fugax; Z86.73 Personal history of transient ischemic attack (TIA), and cerebral infarction without residual deficits
CPT/HCPCS: 36225; 80048; 85025; 85347; 93458; 99152; 99153; C1725; C1769; G0278; J1200; J1644; J2250; J3010; Q9967

== ENCOUNTER 2024-07-28 13:16 | Outpatient (CLI) | payer MEDICARE, BC, SELFPAY ==
--- NOTE | 2024-07-28 13:17 | CT_ITS ---
FINAL REPORT TECHNIQUE: The patient was injected with IV contrast. Axial images were obtained through the chest in a PE protocol. 3-D reconstruction images were also performed. Individualized dose reduction techniques using automated exposure control or adjustment of the MA and/or KV according to patient's size were employed. CLINICAL HISTORY: occluded right subclavian artery COMPARISON: None FINDINGS: Calcified plaque is present in the aortic arch. In the thoracic inlet there is segmental occlusion of the right subclavian artery at its origin, which reconstitutes 2 cm beyond the origin. No other major vessel arterial abnormality is identified. Mediastinal vasculature is adequately opacified. No pulmonary artery filling defects are identified to suggest PE. There is no aortic dissection. There is no axillary adenopathy. There is no hilar or mediastinal adenopathy. The heart size is normal. There is no pericardial or pleural effusion. Limited images of the upper abdomen are unremarkable. No suspicious infiltrate or nodule is identified. No underlying mass is identified. 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 Reviewed, Interpreted and Dictated by Esequiel Lenz MD Transcribed by Su Catherine Authenticated and [facility]
--- NOTE | 2024-07-28 13:17 | CT_ITS ---
FINAL REPORT TECHNIQUE: NASCET technique utilized for stenosis evaluation. CLINICAL HISTORY: occluded right subclavian artery COMPARISON: None FINDINGS: CTA NECK SOFT TISSUE: No cervical mass or adenopathy is identified. The submandibular and parotid glands are symmetric. There is minimal vascular calcification in the right proximal internal carotid artery, and no hemodynamically significant stenosis is present. There is mild to moderate calcification in the left carotid bulb and proximal internal carotid artery, once again not hemodynamically significant. The vertebral arteries are patent. There is segmental occlusion of the subclavian artery on the right side, at its origin, which reconstitutes 2 cm beyond the origin. This is best seen on image #62 of series 601, and images 17 through 25 of series 3. 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 No underlying mass is identified. No hemodynamically significant stenosis is noted in either carotid artery. Reviewed, Interpreted and Dictated by Esequiel Lenz MD Transcribed by Su Catherine Authenticated and [facility]
[2024-07-28] MEDS: SODIUM CHLORIDE 0.9% 10ML SYR (RAD ONLY) 10 ML IV (13:53)
[2024-07-28] MEDS: 0.9 % SODIUM CHLORIDE 50 ML VIAL 100 ML IV (13:53)
[2024-07-28] MEDS: IOPAMIDOL-370 (76%);100ML BOTTLE 175 ML IV (13:53)
== END 2024-07-28 23:59 | disposition home or self-care (01) ==
LOC: RAD 13:17
PROVIDERS: PCP Nurse Practitioner; Visit Provider Nurse Practitioner Family
DX: G45.8 Other transient cerebral ischemic attacks and related syndromes (principal); I70.8 Atherosclerosis of other arteries; I25.10 Atherosclerotic heart disease of native coronary artery without angina pectoris
CPT/HCPCS: 70498; 71275; Q9967

== ENCOUNTER 2025-02-25 11:35 | Outpatient (CLI) | payer MEDICARE, BC, SELFPAY ==
--- OUTSIDE RECORDS SUMMARY | 2025-02-18 10:20 | XMS_ITS | Encounter Summary ---
Author Organization [facility] Address 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) Procedures CT Angio Chest Toy Yao MD [address] [address] Phone: tel: fax: Referral ID Status Reason Start Date Expiration Date Visits Re quested Visits Authorized [id number] Closed 11/12/2024 05/14/2026 1 1 Reason for Visit * Imaging (Routine) - Closed Specialty Diagnoses / Procedures Referred By Christiano mccormack Referred To Contact Radiology Diagnoses Steal syndrome, 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) Procedures CT Angio Chest Toy Yao MD [address] [address] Phone: tel: fax: Referral ID Status Reason Start Date Expiration Date Visits Re quested Visits Authorized [id number] Closed 11/12/2024 05/14/2026 1 1 Encounter Details Date Type Department Care Team (Latest Contact Info) Description 02/18/2025 10:20 AM EDT - 02/18/2025 11:59 PM EDT Hospital Encounter [facility] [address] [place] [address] Steal syndrome, subclavian; Stenosis of right subclavian artery (CMS/HCC) Discharge Disposition: Home or Self Care Social History Tobacco Use Types Packs/Day Years Used Date Smoking Tobacco: Every Day Cigarettes Passive Smoke Exposure: Current Smokeless Tobacco: Never Alcohol Use Standard Drinks/Week Comments Yes 7 (1 standard drink = 0.6 oz pur e alcohol) 1 beer a day everyday Sex and Gender Information Value Date Recorded Sex Assigned at Not on file Legal Sex Male 3:20 PM EDT Gender Identity Not on file Sexual Orientation Not on file documented as of this encounter Discharge Instructions * Discharge Instructions* Elan Yin - 02/18/2025 10:32 AM EDT Images from the original note were not included. Caring for Yourself after Contrast Imaging If you had ORAL contrast: You can go back to your normal diet and activities as tolerated. Drink plenty of fluids, unless told otherwise. If you had IV contrast: You can go back to your normal diet and activities as tolerated. Drink plenty of fluids, unless told otherwise. Leave a bandage on the site for 30 minutes (where the IV was inserted or blood was drawn). If you had Intravesical (bladder) contrast: Return to normal diet and activity. What you need to know about delayed reaction to IV contrast What is IV Contrast? Contrast is a dye that is put into your body through an IV. It is used for imaging scans such as CT scans and MRIs. The contrast makes blood vessels, organs and other parts of your body show up better on the scan. What do I need to do after IV contrast? Drink lots of fluids. This will help flush the contrast out of your system. Drink 2-3 extra glasses or bottles of water within 4 hours of your scan. What is a contrast reaction? A contrast reaction is a bad side effect from the contrast dye. It is rare but it does happen. They can be mild - such as sneezing, itching, or hives. They can be severe - such as trouble breathing, throat swelling, and irregular heart beat. When do these reactions happen? They often happen right after the contrast is injected. Some happen hours after going home. Go to the nearest Emergency Department right away if you have any of these symptoms after you leavethe clinic or hospital. Sneezing Itching in your mouth, throat, eyes, ears, or skin Rash or hives Throwing up or stomach sickness High heart rate or ???racing?? of your heart Feeling dizzy or woozy Feeling short of breath or like you can???t take a deep breath Feeling very anxious for no other reason It is very important that these reactions be treated. Tell the doctor or nurse that you are having a reaction to IV contrast dye. Do not ignore any sign of a reaction! All reactions must be assessed by a doctor. Call 911 if you are alone and your reaction is more than mild sneezing or itching. If you have a mild reaction, call to speak with a Radiologist, explain that you havehad a contrast reaction, as this needs to be added to your medical record. documented in this encounter Medications at Time of Discharge Aspirin Low Dose 81 MG EC tablet Take 1 tablet (81 mg) by mouth daily. 02/26/2024 atorvastatin (Lipitor) 20 MG tablet Take 1 tablet (20 mg) by mouth daily. 07/16/2024 ibuprofen 200 MG tablet Take 1 tablet (200 mg) by mouth every 8 hours as needed for mild pain, moderate pain or headaches. therapeutic multivitamin-mine rals (Theragran-M) tablet Take 1 tablet by mouth daily. 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 CRITICAL RESULT: No COMMUNICATION: Per this written report. By electronically signing this report, I, the attending physician, attest that I have personally reviewed the images/data for the above examination(s) and agree with the final edited report. Drafted by RT Susan on 02/18/2025 11:38 AM Final report signed by Dawit Schneider MD on 02/18/2025 12:16 PM Narrative 02/18/2025 12:16 PM EDT CLINICAL INDICATION: AORTIC DISEASE TECHNIQUE: A CT angiogram of the chest was performed in arterial phase. A total of 80 mL of Omnipaque 350 was administered during the examination. Advanced 3D workstation manipulation and review of the data set was performed by the interpreting physician to further define anatomy and possible pathology. Images of areas of interest were created utilizing various techniques. These images were saved and transferred to PACS if significant. The imaging protocol used in this examination was optimized to achieve diagnostic quality with the lowest possible radiation dose in accordance with the principles of ALARA (As Low As Reasonably Achievable). COMPARISON: CTA chest on November 12, 2024 Thoracic Aorta: Qualitative Description Of The Aorta: Stable appearance of aortic atherosclerosis, with no acute aortic abnormalities appreciated. The aorta is stable in size throughout. Sinus: L 37 mm, R 36 mm, N 38 mm Sinotubular Junction: 31 mm Mid Ascending Aorta: 34 mm Proximal Transverse Aorta (just proximal to the great vessels): 35 mm Mid Transverse Aortic Arch (Between the Origins of the Left Carotid and Left Subclavian artery): 29 mm Dista Transverse Aorta (at the isthmus): 27 mm Proximal Descending Thoracic Aorta: internal 30 mm; external 37 mm Distal Descending Thoracic Aorta: internal 25 mm; external 30 mm ANCILLARY FINDINGS: No mediastinal or hilar adenopathy. No pleural or pericardial effusion. Moderate centrilobular emphysema. No airspace opacities or suspicious pulmonary nodules. Incidental imaging of the upper abdomen is unremarkable except for colonic diverticular disease. 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 Right subclavian artery stenosis visualized in series 5 image 977, measuring 3 mm in minimal dimension. Procedure Note Dawit Schneider MD - 02/18/2025 CLINICAL INDICATION: AORTIC DISEASE TECHNIQUE: A CT angiogram of the chest was performed in arterial phase. A total of80 mL of Omnipaque 350 was administered during the examination. [id number] workstation manipulation and review of the data set was performed bythe interpreting physician to further define anatomy and possiblepathology. Images of areas of interest were created utilizing varioustechniques. These images were saved and transferred to PACS ifsignificant. The imaging protocol used in this examination was optimized to achievediagnostic quality with the lowest possible radiation dose in accordancewith the principles of ALARA (As Low As Reasonably Achievable). COMPARISON: CTA chest on November 12, 2024 Thoracic Aorta: Qualitative Description Of The Aorta: Stable appearance of aorticatherosclerosis, with no acute aortic abnormalities appreciated. The aortais stable in size throughout. Sinus: L 37 mm, R 36 mm, N 38 mm Sinotubular Junction: 31 mm Mid Ascending Aorta: 34 mm Proximal Transverse Aorta (just proximal to the great vessels): 35 mm Mid Transverse Aortic Arch (Between the Origins of the Left Carotid andLeft Subclavian artery): 29 mm Dista Transverse Aorta (at the isthmus): 27 mm Proximal Descending Thoracic Aorta: internal 30 mm; external 37 mm Distal Descending Thoracic Aorta: internal 25 mm; external 30 mm ANCILLARY FINDINGS: No mediastinal or hilar adenopathy. No pleural or pericardial effusion.Moderate centrilobular emphysema. No airspace opacities or suspiciouspulmonary nodules. Incidental imaging of the upper abdomen is unremarkableexcept for colonic diverticular disease. Proximal right subclavian artery aneurysm measuring 17 mm in maximumdimension, stable. Right subclavian artery stenosis visualized in series 5image 977, measuring 3 mm in minimal dimension. 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 CRITICAL RESULT: No COMMUNICATION: Per this written report. By electronically signing this report, I, the attending physician, attestthat I have personally reviewed the images/data for the aboveexamination(s) and agree with the final edited report. 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) Atherosclerosis of other specified arteries documented in this encounter Administered Medications Inactive Administered Medications - up to 3 most recent administrations Medication Order MAR Action Action Date Dose Rate Site iohexol (OMNIPaque) 350 MG/ML injection 80 mL 80 mL, Intravenous, Once in imaging, 1 dose, Starting on Sun02/18/25 at 1032, Until Sun02/18/25 at 1058, Routine, Imaging Protocol Orders Given 02/18/2025 10:58 AM EDT 80 mL documented in this encounter Additional Health Concerns Assessment Noted Time A fall risk assessment has been complete d for the patient 02/18/2025 11:43 AM EDT A Body Mass Index follow-up plan has been documented for the patient 02/26/2025 9:48 AM EDT documented as of this encounter Care Teams Supervising Appraiser Relationship Specialty Start Date End Date Celeste Zuñiga APRN [facility] [place] [address] PCP - General 02/08/24 documented as of this encounter
--- OUTSIDE RECORDS SUMMARY | 2025-02-18 12:00 | XMS_ITS | Encounter Summary ---
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, subclavian Procedures CT Angio Chest Toy Yao MD [address] [place] [address] Phone: tel: fax: Referral ID Status Reason Start Date Expiration Date V isits Requested Visits Authorized [id number] Pending Review 02/26/2025 08/28/2026 1 1 Reason for Visit * Reason Comments <9>Steal syndrome, subclavian Encounter Details Date Type Department Care Team (Latest Contact Info) Description 02/18/2025 12:00 PM EDT Office Visit [facility] [address] [facility] [address] [place] [address] Toy Yao MD [address] [place] [phone] Stenosis of right subclavian artery (CMS/HCC) (Primary Dx); Steal syndrome, subclavian Social History Tobacco Use Types Packs/Day Years [...] on file documented as of this encounter Last Filed Vital Signs Vital Sign Reading Time Taken Comments Blood Pressure 134/85 02/18/2025 11:47 AM EDT Pulse 87 02/18/2025 11:47 AM EDT Temperature 36.5 C (97.7 F) 02/18/2025 11:40 AM EDT Respiratory Rate - - Oxygen Saturation - - Inhaled Oxygen Concentration - - Weight 69.2 kg (152 lb 8.9 oz) 02/18/2025 11:40 AM EDT Height 172.7 cm (5' 8 ) 02/18/2025 11:40 AM EDT Body Mass Index 23.2 02/18/2025 11:40 AM EDT documented in this encounter Miscellaneous Notes * Progress Notes - Elizabeth Boone PA - 02/18/2025 12:00 PM EDT Dear Celeste Zuñiga, FITNESS CLUB MANAGER, HPI Mr. Pham is a 79 year old male presenting for follow up s/p right SCA to CCA transposition including focal endarterectomy of SCA. Today he reports he is doing well without complaints. He is compliant with aspirin and statin. 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 His chronic comorbid conditions that impact our treatment planning include: I reviewed the following co-morbidities which are stable and controlled: Patient Active Problem List Diagnosis Date Noted Stenosis of right subclavian artery (CMS/HCC) 09/18/2024 Steal syndrome, subclavian 07/30/2024 The following portions of the chart were reviewed this encounter and updated as appropriate: Tobacco Allergies Meds Problems Med Hx Surg Hx Fam Hx Subjective Review of Systems All other systems reviewed and are negative. Objective Physical Exam Constitutional: well developed, well nourished, and in no acute distress Palp right radial pulse Assessment/Plan In Summary: Emeka Pham is a 79 y.o. year old male who we saw today in clinic. I discussed the test interpretations and management with associated orders of the following medical conditionsof: Problem List Items Addressed This Visit Steal syndrome, subclavian Relevant Orders CT Angio Chest Stenosis of right subclavian artery (CMS/HCC) - Primary Relevant Orders CT Angio Chest Continue ASA and statin, CTA chest in 6 months to eval successful transposition, but keep an eye onthe small pseudo. We will see him back for: Follow up in 6 months (on 08/21/2025). The patient was counseled on the importance of: - aspirin therapy for overall cardiovascular health - statin therapy for control of hyperlipidemia and plaque stabilization - blood pressure monitoring - proper nutrition, exercise and maintaining a healthy weight. 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, subclavian Expected: 08/29/2025 (Approximate), Expires: 08/30/2026 documented as of this encounter Visit Diagnoses Diagnosis Stenosis of right subclavian artery (CMS/HCC)- Primary Atherosclerosis of other specified arteries Steal syndrome, subclavian documented in this encounter Additional Health Concerns Assessment Noted Time A fall risk assessment has been complete d for the patient 02/18/2025 11:43 AM EDT A Body Mass Index follow-up plan has been documented for the patient 02/26/2025 9:48 AM EDT documented as of this encounter Care Teams Flanging Operator Relationship Specialty Start Date End Date Celeste Zuñiga APRN [address] [place] [address] PCP - General 02/08/24 documented as of this encounter
[2025-02-25 16:45] LABS: Hematocrit 43.5 % (42.0-52.0); Hemoglobin 15.2 g/dL (14.1-18.0); Immature Granulocytes % 0.2 %; Mean Corpuscular HGB Conc 34.9 g/dL (31.8-35.4); Mean Corpuscular Hemoglobin 36.2 pg (27.0-31.2); Mean Corpuscular Volume 103.6 fl (80-94); Nucleated Red Blood Cells % 0 %; Platelet Count 232 K/mm3 (142-424); Red Blood Count 4.20 M/mm3 (4.60-6.20); Red Cell Distribution Width-SD 48.6 fL; White Blood Count 4.4 K/mm3 (4.8-10.8)
[2025-02-25 18:33] LABS: Chloride 106 mmol/L (98-107)
[2025-02-25 18:34] LABS: Albumin Level 4.4 g/dl (3.5-5.0); Potassium 4.9 mmoL/L (3.5-5.1); Sodium 141 mmol/L (136-145)
[2025-02-25 18:36] LABS: Alanine Aminotransferase 22 U/L (12-78); Albumin/Globulin Ratio 1.6 (1.1-1.8); Anion Gap 10.9 mEq/L (5-15); Aspartate Amino Transferase 45 U/L (17-59); Blood Urea Nitrogen 16 mg/dl (9-20); Carbon Dioxide 29 mmol/L (22.0-30.0); Creatinine,Serum 1.10 mg/dl (0.66-1.25); Estimated Glomerular Filt Rate 65 ml/min (>60); GFR (African American) 78 ML/MIN (>60); Globulin 2.7 g/dL (1.3-3.2); Total Protein,Serum 7.1 g/dl (6.3-8.2)
[2025-02-25 18:37] LABS: Alkaline Phosphatase 69 U/L (38-126); Bilirubin,Total 0.9 mg/dl (0.2-1.3); Calcium 9.9 mg/dl (8.4-10.2); Cholesterol 105 mg/dl (140-200); Glucose 78 mg/dl (74-100); HDL Cholesterol 47 mg/dl (40-60); Triglycerides 56 mg/dl (30-150)
[2025-02-25 19:27] LABS: Vitamin B12 430 pg/mL (239-931)
[2025-02-25 19:28] LABS: Thyroid Stimulating Hormone 3.43 uIU/mL (0.465-4.68)
--- OUTSIDE RECORDS SUMMARY | 2025-02-26 12:43 | XMS_ITS ---
Author Organization Unknown TREATMENT PLAN Planned Care Start Date Provider Encounter for Check-up [phone] [facility]
--- OUTSIDE RECORDS SUMMARY | 2025-02-26 12:43 | XMS_ITS | Clinical Summary ---
Author Organization [facility] Address [address] [facility] [address] [place] [address] Phone Care Team Providers Care Ophthalmologist Retina Specialist Name Role Phone Unavailable Primary Care Provider Unavailabl e Allergies No known active allergies Medications fluticasone (FLONASE) 50 mcg/actuation Nasl Liberty, Suspension 1 Liberty by Each Nare route daily. 5 10/07/2016 Active ibuprofen (ADVIL;MOTRIN) 200 mg Oral Tablet Take by mouth every 8 hours as needed for Pain. Active Active Problems No known active problems Surgical History Surgery Date Site/Laterality Comments VARICOSE VEIN SURGERY 1060s Bilateral bilateral legs HERNIA REPAIR 07/02/2000 - 07/01/2001 Right rt inguinal hernia repair EYE SURGERY 07/02/2009 - 07/01/2010 Left cataract IOL implant CATARACT REMOVAL 01/17/2018 Right RIGHT EYE, CATARACT EXTRACTION WITH PHACOEMULSIFICATION AND INTRAOCULAR LENS ; Surgeon: Raffaele Schilling MD; Location: [facility]; Service: Ophthalmology Medical devices from this surgery are in the Medical Devices section. EYE SURGERY 02/25/2019 Left left eye yag laser capsulotomy; Surgeon: Raffaele Schilling MD; Location: [facility]; Service: Ophthalmology EYE SURGERY 11/22/2021 Right RIGHT EYE YAG LASER CAPSULOTOMY; Surgeon: Raffaele Schilling MD; Location: [facility]; Service: Ophthalmology Medical History Medical History Date Comments Smoker 1.5 PPD since ag e 21 Wears hearing aid in both ears Post-operative nausea and vomiting after surgery in 1960s Family History Medical History Relation Name Comments COPD Father Hearing Loss Father No Known Problems Mother Anesth Problems Neg Hx Relation Name Status Comments Father Mother Social History Tobacco Use Types Packs/Day Years Used Date Smoking Tobacco: Every Day Cigarettes 0.3 58.7 Started: 07/02/1966 Smokeless Tobacco: Never Comments:smokes 6 cigarettes per day Alcohol Use Standard Drinks/Week Comments Yes 7 (1 standard drink = 0.6 oz pur e alcohol) Sex and Gender Information Value Date Recorded Sex Assigned at Not on file Legal Sex Male 8:28 PM EDT Gender Identity Not on file Sexual Orientation Not on file Obstetrics History Last Filed Vital Signs Vital Sign Reading Time Taken Comments Blood Pressure 115/90 11/22/2021 7:40 AM EDT Pulse 69 11/22/2021 7:40 AM EDT Temperature 36.3 C (97.4 F) 11/22/2021 7:40 AM EDT Respiratory Rate 16 11/22/2021 7:40 AM EDT Oxygen Saturation 99% 11/22/2021 7:40 AM EDT Inhaled Oxygen Concentration - - Weight 68 kg (150 lb) 11/14/2021 2:01 PM EDT Height 172.7 cm (5' 8 ) 11/14/2021 2:01 PM EDT Body Mass Index 22.81 11/14/2021 2:01 PM EDT Plan of Treatment Health Maintenance Due Date Last Done Comments Wellness Exam Medicare 1948 Hepatitis C Screening 1964 DTaP/TDaP/Td (1 - Tdap) 1965 Pneumococcal Vaccine 50+ (1 of 1 - PCV) 1996 Zoster (1 of 2) 1996 RSV or 60+ (1 - 1-d ose 75+ series) 2021 COVID-19 Vaccine ( - 2023-2 5 season) 2024 Influenza Vaccine (#1) 2025 Hepatitis B Vaccine Aged Out No longe r eligible based on patient's age to complete this topic Meningococcal B Vaccine Aged Out No l onger eligible based on patient's age to complete this topic Medical Devices Implanted Type Area [employer] Device Identifier Shelf Expiration Date Model / Serial / Lot Right Inguinal Hernia Mesh (2000) Lens Intraocular 20.5 Diopter Acrysof Iq 13.0mm Length 6.0mm Aspheric Optic 0 Degree Modified-L Haptic - [id number] Implanted:Qty: 1 on 04/27/2010 at [facility] Left: Eye [facility]URG 11/30/2014 [id number] / [id number] / Lens Intraocular Preloaded 22.5 Diopter - [id number] Implanted:Qty: 1 on 01/17/2018 by Raffaele Schilling MD at [facility] Right: Eye [facility]G 09/29/2020 [id number] / [id number] / Insurance MEDICARE [place] PART A AND B MEDICARE SUPPLEMENT MEDICARE [place] PART A AND B * Guarantor: Olman Colon Account Type Relation to Patient Date of Phone Billing Address [place] Personal Family Self
--- OUTSIDE RECORDS SUMMARY | 2025-02-26 12:43 | XMS_ITS | Encounter Summary ---
Author Organization Healthcare Address [address] [place] [address] Care Team Providers Care Slubber Frame Changer Name Role Phone Celeste Zuñiga APRN Primary Care Provider [phone] Encounter Details Date Type Department Care Team (Latest Contact Info) Description 02/18/2025 Travel Social History Tobacco Use Types Packs/Day Years [...] on file documented as of this encounter Plan of Treatment Not on file documented as of this encounter Visit Diagnoses Not on filedocumented in this encounter Additional Health Concerns Assessment Noted Time A fall risk assessment has been complete d for the patient 02/18/2025 11:43 AM EDT A Body Mass Index follow-up plan has been documented for the patient 02/26/2025 9:48 AM EDT documented as of this encounter Care Teams Slubber Frame Changer Relationship Specialty Start Date End Date Celeste Zuñiga APRN [address] [place] [address] PCP - General 02/08/24 documented as of this encounter
--- OUTSIDE RECORDS SUMMARY | 2025-02-26 12:43 | XMS_ITS | Clinical Summary ---
Author Organization [facility] Address [address] [place] [address] Care Team Providers Care Historical Records Administrator Name Role Phone Celeste Zuñiga MARISSA Primary Care Provider [phone] Allergies No known active allergies Medications ibuprofen 200 MG tablet Take 1 tablet (200 mg) by mouth every 8 hours as needed for mild pain, moderate pain or headaches. Active Aspirin Low Dose 81 MG EC tablet Take 1 tablet (81 mg) by mouth daily. 02/26/2024 Active atorvastatin (Lipitor) 20 MG tablet Take 1 tablet (20 mg) by mouth daily. 07/16/2024 Active therapeutic multivitamin-mi nerals (Theragran-M) tablet Take 1 tablet by mouth daily. 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 Encounters Date Type Department Care Team Description 02/18/2025 12:00 PM EDT Office Visit [facility] [address] [facility] 5th Floor [address] [place] [address] Toy Yao MD Stenosis of right subclavian artery (CMS/HCC) (Primary Dx); Steal syndrome, subclavian 02/18/2025 10:20 AM EDT - 02/18/2025 11:59 PM EDT Hospital Encounter [facility] [address] [place] [address] Steal syndrome, subclavian; Stenosis of right subclavian artery (CMS/HCC) Discharge Disposition: Home or Self Care 02/18/2025 Travel from Last 3 Months Family History Medical History Relation Name Comments Anesthesia problems Neg Hx Malig Hyperthermia Neg Hx Social History Tobacco Use Types Packs/Day Years Used Date Smoking Tobacco: Every Day Cigarettes Passive Smoke Exposure: Current Smokeless Tobacco: Never Tobacco Cessation:Ready to Q uit: Not Asked; Counseling Given: Not Answered Alcohol Use Standard Drinks/Week Comments Yes 7 (1 standard drink = 0.6 oz pur e alcohol) 1 beer a day everyday Sex and Gender Information Value Date Recorded Sex Assigned at Not on file Legal Sex Male 3:20 PM EDT Gender Identity Not on file Sexual Orientation Not on file Last Filed Vital Signs Vital Sign Reading Time Taken Comments Blood Pressure 134/85 02/18/2025 11:47 AM EDT Pulse 87 02/18/2025 11:47 AM EDT Temperature 36.5 C (97.7 F) 02/18/2025 11:40 AM EDT Respiratory Rate 16 09/19/2024 8:00 AM EDT Oxygen Saturation 96% 09/19/2024 8:00 AM EDT Inhaled Oxygen Concentration - - Weight 69.2 kg (152 lb 8.9 oz) 02/18/2025 11:40 AM EDT Height 172.7 cm (5' 8 ) 02/18/2025 11:40 AM EDT Body Mass Index 23.2 02/18/2025 11:40 AM EDT Plan of Treatment Health Maintenance Due Date Last Done Comments [facility]-Depression Screening 1945 [facility]-Hepatitis C Screening 1945 [facility]Medicare Annual Wellness (AWV) 1945 [facility]-Infant/Child/Adol SDOH Screenings 1945 [facility]- SDOH Screenings 1964 [facility]-Adult SDOH Screenings 1964 [facility]-DTaP,Tdap,and Td Vaccines (1 - Tdap) 1965 [facility]-Pneumococcal Vaccine: 50+ Years (1 of 2 - PCV) 1965 [facility]-Zoster Vaccines (1 of 2) 1996 [facility]-RSV Vaccine: 60+ Years or (1 - 1-dose 75+ series) 2021 [id number] Vaccine ( - season) 2024 05/30/2021, 10/06/2020, 09/09/2020 [facility]-Influenza Vaccine (#1) 03/02/202505/04, 04/26/2022, 05/06/2021, Additional history exists HPV Vaccines Aged Out No longer eligi ble based on patient's age to complete this topic [facility]-HIB Vaccines Aged Out No longer e ligible based on patient's age to complete this topic [facility]-Hepatitis A Vaccines Aged Out No longer eligible based on patient's age to complete this topic [facility]-IPV Vaccines Aged Out No longer e ligible based on patient's age to complete this topic [facility]-Rotavirus Vaccines Aged Out No lo nger eligible based on patient's age to complete this topic Procedures Procedure Name Priority Date/Time Associated Diagnosis Comments CT ANGIO CHEST Routine 02/18/2025 11:03 AM EDT Steal syndrome, 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) from Last 3 Months Results * CT Angio Chest (02/18/2025 11:03 [...] Omnipaque 350 was administered during the examination. [id number] workstation manipulation and review of the data [...] Yao MD IMG CT PROCEDURES Final Result from Last 3 Months Insurance MEDICARE [facility] Advance Directives * Full Code (Latest Code Status on File) Date Activated Date Inactivated Comments 09/18/2024 11:47 AM 09/19/2024 12:20 PM Care Teams Historical Records Administrator Relationship Specialty Start Date End Date Celeste Zuñiga APRN [address] [place] [address] PCP - General 02/08/24
== END 2025-02-25 23:59 | disposition home or self-care (01) ==
LOC: LAB.DROPOF 02-26 12:41
PROVIDERS: PCP Nurse Practitioner; Visit Provider Nurse Practitioner
DX: Z12.5 Encounter for screening for malignant neoplasm of prostate (principal); Z11.59 Encounter for screening for other viral diseases; E78.5 Hyperlipidemia, unspecified
CPT/HCPCS: 80053; 80061; 82607; 84443; 85025; 87389; G0103